=== PATIENT | male | born 1960 | race Caucasian/White ===

== ENCOUNTER 2020-05-14 08:34 | Outpatient (REF) | payer BC, SELFPAY | END 2020-05-14 08:35 | disposition home or self-care (01) | LOC: HO.WFDLDS 08:34 | PROVIDERS: Visit Provider Internal Medicine | DX: Z20.828 Contact with and (suspected) exposure to other viral communicable diseases (principal) | CPT/HCPCS: 87635 ==

== ENCOUNTER 2020-05-23 07:25 | Outpatient (REF) | payer BC, SELFPAY | END 2020-05-23 07:26 | disposition home or self-care (01) | LOC: HO.WFDLDS 07:25 | PROVIDERS: Visit Provider Internal Medicine | DX: Z20.828 Contact with and (suspected) exposure to other viral communicable diseases (principal) | CPT/HCPCS: 87635 ==

== ENCOUNTER 2020-07-26 11:11 | Outpatient (REF) | payer BC, SELFPAY | END 2020-07-26 11:12 | disposition home or self-care (01) | LOC: HO.WFDLDS 11:11 | PROVIDERS: PCP Internal Medicine; Visit Provider Internal Medicine | DX: Z20.828 Contact with and (suspected) exposure to other viral communicable diseases (principal) | CPT/HCPCS: C9803; U0003 ==